=== PATIENT | female | born 1960 | race Hispanic/Latino ===

== ENCOUNTER 2024-06-09 14:41 | Emergency (ER) | payer OTHER ==
[~2024-06-09] VITALS: Ht 157.5 cm; Wt 64.4 kg
[2024-06-09 16:00] VITALS: PULSE 92; RESP 17; TEMP 98.6; O2SAT 99
[2024-06-09 17:08] LABS: STREPTOCOCCUS GRP A ANTIGEN NEGATIVE (NEGATIVE)
[2024-06-09 17:13] LABS: INFLUENZAE A&B ANTIGEN (RAPID) NEGATIVE (NEGATIVE)
[2024-06-09] MEDS ORDERED: DEXAMETHASONE4 MG PO (17:36)
[2024-06-09] MEDS ORDERED: MUCINEX DM ER1 EACH PO (17:37)
[2024-06-09] MEDS: DEXAMETHASONE 4 MG TAB PO STA (17:41)
== END 2024-06-09 18:03 | disposition home or self-care (01) ==
LOC: ER 15:03
DX: R53.1 Weakness (principal); U07.1 COVID-19; I10 Essential (primary) hypertension; E78.5 Hyperlipidemia, unspecified; F41.9 Anxiety disorder, unspecified
CPT/HCPCS: 71045; 83518; 87070; 87400; 99283; J8540; U0002